=== PATIENT | female | born 1955 | race Caucasian/White ===

== ENCOUNTER 2018-11-16 09:46 | Emergency (ER) | payer OTHER ==
[~2018-11-16] VITALS: Ht 157.5 cm; Wt 67.1 kg
[2018-11-16 09:58] VITALS: BP_SYST 160
[2018-11-16] MEDS ORDERED: KETOROLAC TROMETHAMINE 60 MG/2 ML VIAL IM ONE (10:30)
[2018-11-16 10:55] VITALS: BP_SYST 160
== END 2018-11-16 10:55 | disposition home or self-care (01) ==
LOC: SED 09:46
DX: G89.29 Other chronic pain (principal); M25.551 Pain in right hip; E11.9 Type 2 diabetes mellitus without complications; I10 Essential (primary) hypertension; M19.90 Unspecified osteoarthritis, unspecified site; E78.5 Hyperlipidemia, unspecified; Z76.0 Encounter for issue of repeat prescription; Z95.1 Presence of aortocoronary bypass graft
CPT/HCPCS: 96372; 99283; J1885

== ENCOUNTER 2019-04-18 08:34 | Emergency (ER) | payer OTHER, MEDICAID ==
[~2019-04-18] VITALS: Ht 157.5 cm; Wt 90.7 kg
[2019-04-18 08:34] VITALS: BP_SYST 184
[2019-04-18] MEDS ORDERED: KETOROLAC TROMETHAMINE 30 MG VIAL IM ONE (09:15)
[2019-04-18 09:57] VITALS: BP_SYST 151
== END 2019-04-18 09:57 | disposition home or self-care (01) ==
LOC: SED 08:34
DX: M25.551 Pain in right hip (principal); I10 Essential (primary) hypertension; E78.5 Hyperlipidemia, unspecified; M19.90 Unspecified osteoarthritis, unspecified site; F17.200 Nicotine dependence, unspecified, uncomplicated; Z71.6 Tobacco abuse counseling
CPT/HCPCS: 96372; 99283; J1885

== ENCOUNTER 2022-01-08 04:40 | Emergency (ER) | payer MEDICAID, OTHER ==
[~2022-01-08] VITALS: Ht 157.5 cm; Wt 77.1 kg
[2022-01-08 05:05] VITALS: BP_SYST 200
--- NOTE | 2022-01-08 05:05 | NUR ---
Patient ambulatory to bed 7 for evaluation and treatment. 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
--- NOTE | 2022-01-08 05:08 | NUR ---
First contact. Pt placed on monitor.
--- NOTE | 2022-01-08 05:11 | NUR ---
Dr. Moreno present in room.
[2022-01-08] MEDS ORDERED: MORPHINE 2 MG/ML INJ. SYRINGE IVP ONE (05:30)
[2022-01-08] MEDS ORDERED: PANTOPRAZOLE SODIUM 40 MG/VIAL (PROTONIX) IVP ONE (05:30)
[2022-01-08] MEDS ORDERED: NACL 0.9% 1,000 ML IV ONE ×2 (05:30)
[2022-01-08] MEDS ORDERED: ONDANSETRON HCL 4 MG/2 ML VIAL IVP ONE (05:30)
[2022-01-08 05:41] LABS: BASOPHILS % (AUTO) 0.4 % (0.0-2.0); EOSINOPHILS # (AUTO) 0.1 K/uL (0.0-0.4); EOSINOPHILS % (AUTO) 0.7 % (0.0-4.0); HEMATOCRIT 46.2 % (36-48); HEMOGLOBIN 15.2 g/dL (12.0-16.0); LYMPHOCYTES % (AUTO) 16.8 % (20.5-51.5); MEAN CORPUSCULAR HEMOGLOBIN 29 pg (27-31); MEAN CORPUSCULAR HGB CONC 33 % (32-36); MEAN CORPUSCULAR VOLUME 89 fL (79.0-98.0); MONOCYTES # (AUTO) 0.6 K/uL (0.0-1.0); MONOCYTES % (AUTO) 5.3 % (1.7-9.3); NEUTROPHILS # (AUTO) 9.1 K/uL (1.8-7.7); NEUTROPHILS % (AUTO) 76.8 % (40.0-70.0); PLATELET COUNT (AUTO) 196 K/uL (130-430); RED BLOOD CELL COUNT(AUTO) 5.21 MIL/uL (4.2-6.2); RED CELL DISTRIBUTION WIDTH 14.7 % (9.0-15.0); WHITE BLOOD COUNT (AUTO) 11.9 K/uL (4.8-10.8)
[2022-01-08 05:47] LABS: CALCIUM 9.2 mg/dL (8.4-11.0); CREATININE 0.79 mg/dL (0.55-1.30); POTASSIUM 3.9 mmol/L (3.5-5.1)
[2022-01-08 05:53] LABS: ALBUMIN 3.9 g/dL (3.4-4.8); TOTAL BILIRUBIN 0.3 mg/dL (0.0-1.0)
[2022-01-08] MEDS ORDERED: NITROGLYCERIN 0.4 MG TAB.SUBL SL ONE (06:00)
[2022-01-08] MEDS ORDERED: ASPIRIN 325 MG TABLET PO ONE (06:00)
[2022-01-08] MEDS ORDERED: cloNIDine HCL 0.1 MG TABLET PO ONE ×2 (06:15→09:00)
[2022-01-08] MEDS ORDERED: fentaNYL CITRATE/PF 100 MCG/2 ML AMP IVP ONE ×2 (06:15)
[2022-01-08] MEDS ORDERED: fentaNYL CITRATE/PF 100 MCG/2 ML AMP ONE (06:18)
[2022-01-08] MEDS ORDERED: IOHEXOL 300mgI/mL,100 ML INFUS..BTL IV ONE (06:25)
--- NOTE | 2022-01-08 06:25 | NUR ---
Pt off to CT scan at this time.
[2022-01-08] MEDS ORDERED: MAG HYDROX/AL HYDROX/SIMETH 30 ML, DICYCLOMINE HCL 20 MG, LIDOCAINE VISCOUS 2% 15ML (PO... PO ONE ×3 (07:15)
--- NOTE | 2022-01-08 07:41 | NUR ---
MEDICATED GOR ABD PAIN WITH G1 COCKTAIL, URINE TO LAB
[2022-01-08 07:49] LABS: BILIRUBIN,URINE NEGATIVE (NEGATIVE); CLARITY/URINE CLEAR (CLEAR); COLOR,URINE YELLOW (YELLOW); GLUCOSE,URINE 1+ (NEGATIVE); KETONES,URINE NEGATIVE (NEGATIVE); LEUKOCYTE ESTERASE ,URINE NEGATIVE (NEGATIVE); NITRITE, URINE NEGATIVE (NEGATIVE); PROTEIN URINE NEGATIVE (NEGATIVE); UROBILINOGEN,URINE 0.2 (0.2-1.0)
[2022-01-08 07:52] LABS: BLOOD, URINE TRACE (NEGATIVE)
[2022-01-08 08:07] LABS: BACTERIA,URINE FEW /HPF (None Seen); RBC,URINE 0-3 /HPF (0-3); WBC,URINE NONE SEEN /HPF (0-3)
--- NOTE | 2022-01-08 09:10 | NUR ---
MEDICATED FOR ELEVAED BP AND 2 ND TROP DRAWN TO LAB
[2022-01-08] MEDS ORDERED: OMEP40CA20 PO (09:57)
[2022-01-08] MEDS ORDERED: ONDA-8 TL (09:57)
[2022-01-08] MEDS ORDERED: HYDR-3917 PO (09:57)
[2022-01-08 10:08] VITALS: BP_SYST 175
--- NOTE | 2022-01-08 10:09 | NUR ---
Patient given written and verbal discharge instructions and verbalizes understanding. DESTINY CARDOZO MD discussed with patient the results and treatment provided. Patient in stable condition. ID arm band removed. IV catheter removed intact and dressing applied, no active bleeding. Rx of HYDROCODONE, PRILOSEC,ZOFRAN given. Patient educated on pain management and to follow up with PMD. Pain Scale 0. Opportunity for questions provided and answered. Medication side effect fact sheet provided.
== END 2022-01-08 10:09 | disposition home or self-care (01) ==
LOC: SED 04:40
DX: R10.13 Epigastric pain (principal); I10 Essential (primary) hypertension; E11.9 Type 2 diabetes mellitus without complications; Z20.822 Contact with and (suspected) exposure to COVID-19
CPT/HCPCS: 36415; 74177; 76376; 76705; 80053; 81000; 83690; 84484; 85025; 87426; 93005; 96361; 96374; 96375; 99284; C9113; J2001; J2270; J2405; J3010; J7030; Q9967 ×2

== ENCOUNTER 2023-07-22 07:39 | Emergency (ER) | payer OTHER ==
[~2023-07-22] VITALS: Ht 157.5 cm; Wt 72.6 kg
[~2023-07-22 07:39] MED LIST: HYDR-3917 PO; OMEP40CA20 PO; ONDA-8 TL
[2023-07-22 07:54] VITALS: BP_SYST 152; PULSE 64; RESP 18; TEMP 97; O2SAT 97
[2023-07-22] MEDS ORDERED: KETOROLAC TROMETHAMINE 60 MG/2 ML VIAL IM ONE (08:15)
[2023-07-22 08:25] LABS: BASOPHILS # (AUTO) 0.1 K/uL (0.0-0.2); BASOPHILS % (AUTO) 1.2 % (0.0-2.0); EOSINOPHILS # (AUTO) 0.2 K/uL (0.0-0.4); EOSINOPHILS % (AUTO) 2.8 % (0.0-4.0); HEMATOCRIT 41.4 % (36-48); HEMOGLOBIN 13.6 g/dL (12.0-16.0); LYMPHOCYTES # (AUTO) 2.5 K/uL (1.0-5.5); LYMPHOCYTES % (AUTO) 33.6 % (20.5-51.5); MEAN CORPUSCULAR HEMOGLOBIN 30 pg (27-31); MEAN CORPUSCULAR HGB CONC 33 % (32-36); MEAN CORPUSCULAR VOLUME 91 fL (79.0-98.0); MONOCYTES # (AUTO) 0.6 K/uL (0.0-1.0); MONOCYTES % (AUTO) 7.9 % (1.7-9.3); NEUTROPHILS % (AUTO) 54.5 % (40.0-70.0); PLATELET COUNT (AUTO) 198 K/uL (130-430); RED BLOOD CELL COUNT(AUTO) 4.53 MIL/uL (4.2-6.2); RED CELL DISTRIBUTION WIDTH 15.1 % (9.0-15.0); WHITE BLOOD COUNT (AUTO) 7.4 K/uL (4.8-10.8)
[2023-07-22 08:48] LABS: CALCIUM 8.6 mg/dL (8.4-11.0); POTASSIUM 3.7 mmol/L (3.5-5.1)
[2023-07-22 09:02] LABS: ALBUMIN 3.4 g/dL (3.4-4.8); TOTAL BILIRUBIN 0.5 mg/dL (0.0-1.0); TOTAL PROTEIN, SERUM 6.6 g/dL (6.4-8.3)
[2023-07-22 09:39] LABS: BILIRUBIN,URINE NEGATIVE (NEGATIVE); BLOOD, URINE 2+ (NEGATIVE); COLOR,URINE YELLOW (YELLOW); GLUCOSE,URINE Trace (NEGATIVE); KETONES,URINE NEGATIVE (NEGATIVE); LEUKOCYTE ESTERASE ,URINE 3+ (NEGATIVE); NITRITE, URINE NEGATIVE (NEGATIVE)
[2023-07-22 09:51] LABS: CLARITY/URINE HAZY (CLEAR); PROTEIN URINE TRACE (NEGATIVE)
[2023-07-22 10:05] LABS: BACTERIA,URINE MODERATE /HPF (None Seen); MUCUS,URINE 1+ /LPF (None Seen)
[2023-07-22] MEDS ORDERED: NITR-85 PO (11:44)
[2023-07-22] MEDS ORDERED: TRAM50TA2 PO (11:44)
[2023-07-22] MEDS ORDERED: IBUP-1969 PO (11:44)
[2023-07-22] MEDS ORDERED: HYDROcodone/ACETAMIN 10-325 MG TAB PO ONE (11:45)
[2023-07-22] MEDS ORDERED: cefTRIAXone 1 GM in LIDOCAINE 1%, 20 ML MDV 2.1 ML IM ONE (12:15)
[2023-07-22 12:31] VITALS: BP_SYST 152; PULSE 64; RESP 18; TEMP 97; O2SAT 97
== END 2023-07-22 12:31 | disposition home or self-care (01) ==
LOC: SED 07:39
DX: N12 Tubulo-interstitial nephritis, not specified as acute or chronic (principal); M54.50 Low back pain, unspecified; R30.0 Dysuria; R11.0 Nausea; E11.9 Type 2 diabetes mellitus without complications; I10 Essential (primary) hypertension; E78.5 Hyperlipidemia, unspecified; Z79.899 Other long term (current) drug therapy
CPT/HCPCS: 99284; 74176; 80053; 81000; 82150; 83690; 85025; 87086; 36415; 76376; 96372; 83605; 82397; J0696; J1885; J2001